=== PATIENT | male | born 1960 | race Hispanic/Latino ===

== ENCOUNTER 2017-05-20 09:45 | Day surgery (SDC) | payer OTHER ==
[2017-05-18 14:45] VITALS: BMI 38.0
[~2017-05-20 09:45] MED LIST: Bupivacaine HCl 0.25% PF (10 ml) Inj ONE; Iohexol 240 (50 ml) ONE; Lidocaine Hydrochloride 10 ML INJ ONE; MethylPREDNISolone Depo 40 mg/ml Inj ONE
[2017-05-20] MEDS ORDERED: Propofol 10 mg/ml Inj (20 ML) ONE (11:33)
[2017-05-20] MEDS ORDERED: Midazolam 2 MG/2 ML VIAL ONE ×2 (11:42→11:47)
[2017-05-20] MEDS ORDERED: Bupivacaine HCl 0.25% PF (10 ml) Inj ONE (12:18)
[2017-05-20 12:47] VITALS: RESP 15
--- NOTE | 2017-05-20 15:07 | RAD ---
PROCEDURE: Intraoperative Fluoroscopy. HISTORY: Bilateral KNEE OSTEOARTHRITIS FINDINGS: Fluoroscopic assistance was provided for bilateral knee genicular nerve blocks. Please refer to the operative report from NATHALIE Hodges.
[2017-05-20 15:37] VITALS: BP 115/86; PULSE 78; TEMP 98.1; O2SAT 97
--- NOTE | 2017-05-21 08:46 | OP ---
PROCEDURE DATE: 05/20/2017 PREOPERATIVE DIAGNOSIS: Right and left knee pain. POSTOPERATIVE DIAGNOSIS: Right and left knee pain. PROCEDURE: Right and left genicular nerve block, superomedial, superolateral and inferomedial. X-ray was fluoroscopy [id number]. TYPE OF ANESTHESIA: Local with MAC sedation. COMPLICATIONS: None. ESTIMATED BLOOD LOSS: Minimal. INDICATIONS: This patient with knee pain and end-stage osteoarthritis. The patient continues to have adverse pain affecting his ADLs. The patient was referred to pain management for treatment. DESCRIPTION OF PROCEDURE: After comprehensive informed consent was obtained, the risks of the procedure were explained and questions answered. The patient was placed in supine position on the operating room table in a comfortable position. Confirmation of the procedure to be performed was obtained from the patient. The skin overlying the area to be injected was confirmed and cleansed in a strict sterile fashion with chlorhexidine prep and draped sterilely. The knee joint was identified in the AP view, medial and lateral femoral condyle, cortical lines were focused on. Sterile drape was placed around the area to be injected. The area to be injected was superficially anesthetized with 2 mL of 1% lidocaine using a 27-gauge ,1.25 inch at each level as noted above. A 22-gauge 3.5 inch spinal needle was used to advance to the medial and lateral femoral condyle grooves as well as the medial tibial groove. AP and lateral views were taken with fluoroscopy to confirm needle placement. Total volume of 15 mL of 0.25% Marcaine with 40 mg of Depo-Medrol was injected with intermittent aspiration. No heme or CSF was aspirated throughout. The patient tolerated the procedure well. Vital signs remained stable. DISPOSITION: The patient was discharged to home in stable condition with instruction to follow up with Dr. Forbes in 2 weeks. Mackenzie Egan MD
== END 2017-05-20 14:43 | disposition home or self-care (01) ==
LOC: C.SDS 09:45
PROVIDERS: ATTEND Anesthesiology Pain Medicine
DX: M47.817 Spondylosis without myelopathy or radiculopathy, lumbosacral region (principal); M54.16 Radiculopathy, lumbar region; M51.36 Other intervertebral disc degeneration, lumbar region; M17.0 Bilateral primary osteoarthritis of knee
CPT/HCPCS: 64483; 64484; J1030; J2250; J2704